=== PATIENT | male | born 1945 | race Caucasian/White ===

== ENCOUNTER 2017-07-11 17:43 | Emergency (ER) | payer BC ==
[~2017-07-11] VITALS: Ht 165.1 cm; Wt 89.0 kg
[~2017-07-11 17:43] MED LIST: ATOR10TA23; LISI10TA2; METF500T4
[2017-07-11 17:46] VITALS: Ht 165.1 cm; Wt 89.0 kg
--- NOTE | 2017-07-11 19:15 | ERD ---
ER Documentation Chief Complaint Date/Time DATE: 07/11/17 TIME: 19:05 Chief Complaint RIGHT KNEE PAIN AFTER TWISTING HPI 72-year-old male who presented emergency department for right knee pain after twisting this last Tuesday. Stated that he was walking when he accidentally twisted his right knee. Requesting an x-ray of his right knee. Denies headache, dizziness, blurry vision, neck pain, shoulder pain, chest pain , shortness of breath, difficulty breathing when lying flat, back pain, abdominal pain, nausea, vomiting, constipation, diarrhea, urinary symptoms, recent exposure to any illness, recent antibiotic use in the last 3 months, numbness or tingling sensation, calf tenderness. No known drug allergies. Past medical history of hypertension, hyperlipidemia, diabetes. Surgery: Denies. Medication: Losartan, glipizide, gemfibrozil. Social: Semiretired. Denies smoking, alcohol, use of illegal drugs. ROS All systems reviewed and are negative except as per history of present illness. Medications Home Meds Active Scripts Cyclobenzaprine Hcl* (Cyclobenzaprine Hcl*) 10 Mg Tablet, 10 MG PO Q12 Y for PAIN, #20 TAB Prov:MARIA ISABEL FIGUEROA 07/11/17 Reported Medications Metformin* (Glucophage*) 500 Mg Tab 04/08/12 Lisinopril* (Lisinopril*) 10 Mg Tablet 02/03/11 Atorvastatin (Lipitor) 10 Mg Tablet 02/03/11 Allergies Allergies: Coded Allergies: No Known Drug Allergies (Verified Allergy, Unknown, 04/08/12) PMhx/Soc History of Surgery: No Anesthesia Reaction: No Hx Neurological Disorder: No Hx Respiratory Disorders: No Hx Cardiac Disorders: Yes (HTN, HIGH CHOLESTEROL) Hx Psychiatric Problems: No Hx Miscellaneous Medical Probl: No (DM) Hx Alcohol Use: Yes Hx Substance Use: No Hx Tobacco Use: No Physical Exam Vitals Vital Signs Date Time Temp Pulse Resp B/P Pulse Ox O2 Delivery O2 Flow Rate FiO2 07/11/17 17:46 98.1 84 18 160/80 99 Physical Exam Const: [] Head: Atraumatic Eyes: Normal Conjunctiva ENT: Normal External Ears, Nose and Mouth. Neck: Full range of motion..~ No meningismus. Resp: Clear to auscultation bilaterally Cardio: Regular rate and rhythm, no murmurs Abd: Soft, non tender, non distended. Normal bowel sounds Skin: No petechiae or rashes Back: No midline or flank tenderness Ext: No cyanosis, or edema. C-spine/T-spine/L-spine are in midline with good and full range of motion and has no swelling/tenderness/bulging/deformity and is no point of tenderness. Bilateral upper extremities are unremarkable. Bilateral hips are stable and unremarkable. Left lower extremity is unremarkable. Right knee has mild tenderness medially but has good and full range of motion and without deformity/swelling/discoloration. Right knee is not warm to touch. Right ankle/foot are unremarkable. No calf tenderness bilaterally. No neurovascular deficits. Neur: Awake and alert Psych: Normal Mood and Affect Results 24 hrs Current Medications Medications (Trade) Dose Ordered Sig/Anderson Route PRN Reason Start Time Stop Time Status Last Admin Dose Admin Acetaminophen/ Hydrocodone Bitart (Juana Diaz (5/325)) 1 tab ONCE ONCE PO 07/11/17 21:30 07/11/17 21:31 DC Procedures/MDM 72-year-old male who presented emergency department for right knee pain after twisting this last Tuesday. Stated that he was walking when he accidentally twisted his right knee. Requesting an x-ray of his right knee. Denies headache, dizziness, blurry vision, neck pain, shoulder pain, chest pain , shortness of breath, difficulty breathing when lying flat, back pain, abdominal pain, nausea, vomiting, constipation, diarrhea, urinary symptoms, recent exposure to any illness, recent antibiotic use in the last 3 months, numbness or tingling sensation, calf tenderness. No known drug allergies. Past medical history of hypertension, hyperlipidemia, diabetes. Surgery: Denies. Medication: Losartan, glipizide, gemfibrozil. Social: Semiretired. Denies smoking, alcohol, use of illegal drugs. Physical exam: C-spine/T-spine/L-spine are in midline with good and full range of motion and has no swelling/tenderness/bulging/deformity and is no point of tenderness. Bilateral upper extremities are unremarkable. Bilateral hips are stable and unremarkable. Left lower extremity is unremarkable. Right knee has mild tenderness medially but has good and full range of motion and without deformity/swelling/discoloration. Right knee is not warm to touch. Right ankle /foot are unremarkable. No calf tenderness bilaterally. No neurovascular deficits. Disease process was explained to the patient and family member. They both verbalized understanding and agreed with the treatment, plan of care diagnostic tests, plan of care. X-ray of the right knee: No fracture or dislocation. No joint effusion. No soft tissue abnormality. Treatment: Juana Diaz. Angelo wrap to right knee. Reevaluation: Denies headache, dizziness, blurred vision, neck pain, shoulder pain, chest pain, back pain, abdominal pain. C-spine T-spine//L-spine midline and is good and full range of motion without swelling/tenderness/deformity and is no point of tenderness. Bilateral upper extremities are unremarkable. No neurovascular deficits. No neurological deficits. Differential diagnosis: Fracture versus dislocation versus displacement versus contusion versus sprain versus osteoarthritis versus rheumatoid arthritis versus gouty arthritis Final diagnosis: Knee sprain, knee pain Prescription: Flexeril. Follow-up with primary care physician in the next 24-48 hours. PCP to refer patient to orthopedic doctor and or automatic car wash attendant if symptoms persist. Come back here in the emergency department for any new symptoms or any worsening of symptoms. All questions and concerns are answered. Patient verbalized understanding and agreed with the plan of care. Hemodynamically stable on discharge. Departure Diagnosis: Primary Impression: Knee pain Additional Impression: Knee sprain Condition: Stable Additional Instructions: Follow-up with primary care physician in the next 24-48 hours. PCP to refer patient to orthopedic doctor and or automatic car wash attendant if symptoms persist. Come back here in the emergency department for any new symptoms or any worsening of symptoms. All questions and concerns are answered. Patient verbalized understanding and agreed with the plan of care. MARIA ISABEL FIGUEROA Jul 11, 2017 19:15 MARIA ISABEL FIGUEROA Jul 11, 2017 19:15
[2017-07-11] MEDS ORDERED: CYCL-319 PO (21:06)
--- NOTE | 2017-07-11 21:27 | RADRPT ---
PROCEDURE: knee x-ray CLINICAL INDICATION: Fall. Knee pain. TECHNIQUE: AP, lateral and oblique views of the right knee were obtained. COMPARISON: None FINDINGS: No evidence of fracture or dislocation. The medial, lateral, as well as patellofemoral knee joint compartments are well maintained. No joint effusion. No soft tissue or osseous abnormality. IMPRESSION: 1. No fracture or dislocation. 2. No joint effusion. 3. No soft tissue abnormality. RPTAT:AAJJ Physician Coleen Date Time Electronically viewed and signed by Physician Coleen on 07/11/2017 21:26 CHAD/
[2017-07-11] MEDS ORDERED: HYDROCODONE/APAP (5/325) TAB PO ONE (21:30)
[2017-07-11 21:39] VITALS: BP 148/79; PULSE 79; RESP 18; TEMP 98
== END 2017-07-11 21:40 | disposition home or self-care (01) ==
LOC: FTE 17:43
DX: S83.91XA Sprain of unspecified site of right knee, initial encounter (principal); I10 Essential (primary) hypertension; E11.9 Type 2 diabetes mellitus without complications; X50.9XXA Other and unspecified overexertion or strenuous movements or postures, initial encounter; Y92.9 Unspecified place or not applicable; Z79.84 Long term (current) use of oral hypoglycemic drugs
CPT/HCPCS: 73562

== ENCOUNTER 2017-10-25 02:46 | Emergency (ER) | END 2017-10-25 04:46 | disposition left against medical advice (07) ==